=== PATIENT | male | born 1985 | race Caucasian/White ===

== ENCOUNTER 2019-04-04 11:02 | Emergency (ER) | payer OTHER, SELFPAY ==
[2019-04-04 11:20] VITALS: BP 105/67; PULSE 60; RESP 18; TEMP 36.3; O2SAT 100
--- NOTE | 2019-04-04 11:26 | ED.URI ---
HPI - URI/Sore Throat General Chief Complaint: Upper Respiratory Infection Stated Complaint: sore throat/congestion/cough Time Seen by Provider: 04/04/19 11:25 Source: patient Mode of arrival: ambulatory Limitations: no limitations History of Present Illness HPI Narrative: Abner Griffith is a 33 yo male with a PMH of Meryl Schlatter disease who comes to urgent care with a very sore throat, feeling fatigued that started 2 days ago. States that the sore throat is gotten worse. He is a very social smoker Related Data Allergies Allergy/AdvReac Type Severity Reaction Status Date / Time No Known Allergies Allergy Verified 04/04/19 11:19 Review of Systems Review of Systems: Narrative: CONSTITUTIONAL: Denies fever, chills, sweats. EYES: Denies visual changes, redness, discharge. ENT: Denies rhinorrhea, congestion, has sore throat, L otalgia. CARDIOVASCULAR: Denies chest pain, palpitations, edema. RESPIRATORY: Denies dyspnea, wheezing, cough GASTROINTESTINAL: Denies abdominal pain, nausea, vomiting, diarrhea. GENITOURINARY: Denies dysuria, hematuria, abnormal discharge SKIN: Denies rash or itching. MUSCULOSKELETAL: Denies acute back pain, joint pain, or myalgia. NEUROLOGIC: Denies numbness, or focal weakness. PSYCHIATRIC: Denies anxiety or depression. PMFSH Family History Family History Mother Hypertension Cerebrovascular accident Family history of malignant neoplasm Family history of Alzheimer's disease Family history of diabetes mellitus in first degree relative Diabetes mellitus Father Family history of Alzheimer's disease Social History Social History Smoking status: Current every day smoker Second hand tobacco smoke exposure: Yes Alcohol intake: current Gender identity (if verbalized by the patient): Male Comments At time of signature, I agree with nursing past medical, surgical, social and family history. There is no relevant family history pertinent to the presenting complaint. Patient smokes 5 cigarettes a week Exam Narrative: Exam Narrative: GENERAL: This is a well-nourished, well-developed patient, in mild distress. HEAD: normocephalic, atraumatic. EYES: Sclera clear/white. Vision is grossly intact. EARS: External ears normal, auditory canals clear and without drainage, TMs normal on right, left ear canal and TM is red without perforation. Hearing grossly intact. NOSE: External nose normal with no obvious nasal discharge, nares without redness, no rhinorrhea. THROAT: Mucous membranes moist, posterior pharynx erythema with edema NECK: Neck supple, non-tender without lymphadenopathy, masses or thyromegaly. CARDIOVASCULAR: Regular rate and rhythm without murmurs, gallops, or rubs. RESPIRATORY: Clear to auscultation. Breath sounds equal bilaterally. No wheezes, rales, or rhonchi. GASTROINTESTINAL: Abdomen soft, non-tender, nondistended. Bowel sounds are active. No hepato-splenomegaly, or palpable masses. No guarding. SKIN: warm, intact with no suspicious lesions or rash, good texture and turgor. NEURO: awake, alert, and oriented to person, place and time. There were no obvious focal neurologic abnormalities. Steady gait EXTREMITIES: Normal range of motion. No edema. BACK: Nontender without deformity or crepitance. Course Course Emergency Course: Strep negative, flu negative Started on prednisone viscous lidocaine Claritin Flonase Vital Signs Vital signs: Vital Signs Temperature 97.4 F L 04/04/19 11:20 Pulse Rate 60 04/04/19 11:20 Respiratory Rate 18 04/04/19 11:20 Blood Pressure 105/67 04/04/19 11:20 Pulse Oximetry 100 04/04/19 11:20 Temperature 97.4 F L 04/04/19 11:20 Pulse Rate 60 04/04/19 11:20 Respiratory Rate 18 04/04/19 11:20 Blood Pressure 105/67 04/04/19 11:20 Pulse Oximetry 100 04/04/19 11:20 MDM - URI/Sore Throat Differential Diagnosis Differential diagnosis: Likely upper respirato
== END 2019-04-04 11:48 | disposition home or self-care (01) ==
PROVIDERS: Emergency Provider Nurse Practitioner
DX: J02.9 Acute pharyngitis, unspecified (principal); F17.210 Nicotine dependence, cigarettes, uncomplicated
CPT/HCPCS: 87081; 87804; 87880; 99213; G0463

== ENCOUNTER 2021-09-16 17:46 | Emergency (ER) | payer BC, SELFPAY ==
[2021-09-16 17:57] VITALS: BP 139/95; PULSE 73; RESP 15; TEMP 36.6; O2SAT 98
--- NOTE | 2021-09-16 18:04 | ED.URI ---
HPI - URI/Sore Throat General Chief Complaint: Upper Respiratory Infection Stated Complaint: Sore Throat,Cough,Fatigue Time Seen by Provider: 09/16/21 18:04 Source: patient, RN notes reviewed and old records reviewed Mode of arrival: ambulatory Limitations: no limitations History of Present Illness HPI Narrative: 36 year old male who presents to [facility] with complaints of cough, sore throat, and fatigue, runny nose with dizziness and joint pain since Sunday. Patient states on Sunday his cough became productive and his chest feels tight with his breathing and he has felt some shortness of breath when he coughs. Patient reports no nausea or vomiting but did have 2 loose stools yesterday. Patient has not had COVID vaccinations or flu shot. MD elicited complaint: cough, sore throat and other (fatigue) Onset (ago): day(s) (5) Treatments prior to arrival: acetaminophen, cold medicine (Nyquil) and other (Robitussin) Related Data Allergies Allergy/AdvReac Type Severity Reaction Status Date / Time No Known Allergies Allergy Verified 09/16/21 17:52 Review of Systems Review of Systems: CONSTITUTIONAL: Denies fever, chills, or sweats. EYES: Denies visual changes, redness, or discharge. ENT:Positive for rhinorrhea, congestion, sore throat, no otalgia. CARDIOVASCULAR: Denies chest pain, palpitations, or edema. RESPIRATORY: positive cough or dyspnea with his cough GASTROINTESTINAL: Denies abdominal pain, nausea, vomiting, some diarrhea. GENITOURINARY: Denies dysuria or hematuria. SKIN: Denies rash or itching. MUSCULOSKELETAL: Denies back pain, joint pain, Positive for body aches and fatigue NEUROLOGIC: Denies headache, numbness, or weakness. PSYCHIATRIC: Denies anxiety or depression. All systems reviewed & are unremarkable except as noted in HPI and below PMFSH Past Medical History Medical History (Updated 09/17/21 @ 00:00 by Anthony Moctezuma) Right wrist fracture Tourette's Surgical History Surgical History (Updated 09/16/21 @ 18:14 by Shaila Rowell NP) Hx of right inguinal hernia repair S/P wisdom tooth extraction Family History Family History Mother Hypertension Cerebrovascular accident Family history of malignant neoplasm Family history of Alzheimer's disease Family history of diabetes mellitus in first degree relative Diabetes mellitus Father Family history of Alzheimer's disease Social History Social History (Updated 09/18/21 @ 01:52 by Shaila Rowell NP) Smoking status: Current every day smoker Tobacco type: e-cigarettes/vaping Second hand tobacco smoke exposure: Yes Alcohol intake: current Substance use: current Substance use type: marijuana Living arrangements: with family Gender identity (if verbalized by the patient): Male Comments At time of signature, agree with nursing past medical, surgical, social and family history. There is no relevant family history pertinent to the presenting complaint Exam Narrative: GENERAL: Well-appearing, well-nourished, and in no acute distress. HEAD: Normocephalic, atraumatic. EYES: PERRLA and EOMI. ENT: Nares red with clear rhinorrhea no epistaxis. Mucous membranes moist.TM's normal with good light reflex, throat some redness with no lesions or exudates or acute tonsil swelling post nasal drai NECK: Supple.no lymphadenopathy CHEST: coarse to auscultation, faint expiratory wheezes,. No respiratory distress. dry cough SAO2 98% on room air HEART: Regular rate and rhythm. No murmur heard. Normal peripheral pulses. ABDOMEN: Soft, nontender, nondistended, normal active bowel sounds. EXTREMITIES: Normal range of motion. No edema. SKIN: Warm, dry, no rash. NEURO: No focal deficits. Alert and oriented x3. Course Course Level of Care: Express Care Visit Vital Signs Vital signs: Vital Signs Temperature 36.6 C 09/16/21 17:57 Pulse Rate 73 09/16/21 17:57 Respiratory Rate 15 07
== END 2021-09-16 18:35 | disposition home or self-care (01) ==
PROVIDERS: Emergency Provider Registered Nurse; PCP Family Medicine
DX: J40 Bronchitis, not specified as acute or chronic (principal); Z20.822 Contact with and (suspected) exposure to COVID-19; F17.290 Nicotine dependence, other tobacco product, uncomplicated; F95.2 Tourette's disorder
CPT/HCPCS: 87081; 87426; 87804; 87880; 99213; C9803; G0463